=== PATIENT | female | born 1970 | race Caucasian/White ===

== ENCOUNTER 2022-09-24 01:38 | Emergency (ER) | payer BC ==
[~2022-09-24] VITALS: Ht 180.3 cm; Wt 68.0 kg
[2022-09-24 01:38] VITALS: BP 140/79
--- NOTE | 2022-09-24 01:38 | NUR ---
TO LOBBY A/W SARAI SAUCEDO FROM HOME WITH C/O ANXIETY ATTACK
--- NOTE | 2022-09-24 01:45 | NUR ---
PATIENT DOESNT WANT TO WAIT, ARRIVED AND THEY WENT HOME. PATIENT LEFT WITHOUT BEING SEEN BY DR. CESPEDES. NO FURTHER CARE PROVIDED FOR PATIENT.
== END 2022-09-24 01:45 | disposition left against medical advice (07) ==
LOC: MED 01:38
DX: F41.9 Anxiety disorder, unspecified (principal); Z53.21 Procedure and treatment not carried out due to patient leaving prior to being seen by health care provider
CPT/HCPCS: 99281

== ENCOUNTER 2024-03-27 00:44 | Emergency (ER) | payer BC ==
[~2024-03-27] VITALS: Ht 180.3 cm; Wt 77.1 kg
[2024-03-27 00:45] VITALS: BP 152/97; PULSE 90; RESP 20; TEMP 97.6; O2SAT 100
[2024-03-27 01:32] LABS: HEMATOCRIT 34.5 % (36-48); HEMOGLOBIN 11.5 g/dL (12.0-16.0); MEAN CORPUSCULAR HEMOGLOBIN 29 pg (27-31); MEAN CORPUSCULAR HGB CONC 34 g/dL (33-37); MEAN CORPUSCULAR VOLUME 85.3 fL (80-94); PLATELET COUNT (AUTO) 273 K/uL (140-450); RED BLOOD CELL COUNT(AUTO) 4.04 MIL/uL (4.20-5.40); RED CELL DISTRIBUTION WIDTH 13.6 % (11.6-13.7); WHITE BLOOD COUNT (AUTO) 5.1 K/uL (4.8-10.8)
[2024-03-27 01:52] LABS: ALANINE AMINOTRANSFERASE 22 U/L (12-78); ALBUMIN 4.3 g/dL (3.4-5.0); ALKALINE PHOSPHATASE 116 U/L (50-136); ASPARTATE AMINOTRANSFERASE 16 U/L (15-37); BILIRUBIN,DIRECT 0.1 mg/dL (0.0-0.3); TOTAL BILIRUBIN 0.2 mg/dL (0.0-1.0); TOTAL PROTEIN, SERUM 7.6 g/dL (6.4-8.2)
[2024-03-27 01:54] LABS: ANION GAP 12.4 (8-16); CARBON DIOXIDE 29.6 mmol/L (21-32); CREATININE 0.8 mg/dL (0.6-1.3)
== END 2024-03-27 02:25 | disposition home or self-care (01) ==
LOC: MED 00:44
DX: F41.9 Anxiety disorder, unspecified (principal)
CPT/HCPCS: 36415; 80048; 80076; 84484; 85025; 85379; 93005; 99284